=== PATIENT | female | born 1990 | race Caucasian/White ===

== ENCOUNTER 2021-01-20 07:33 | Emergency (ER) | payer OTHER ==
[2021-01-20 08:13] LABS: Urine Blood Trace-intact (Negative); Urine Glucose Negative (Negative); Urine Protein Negative (Negative)
[2021-01-20] MEDS ORDERED: AZITHROMYCIN 250 MG TAB ONE (08:20)
[2021-01-20] MEDS ORDERED: GENTAMICIN 0.3% OPTH DROP 5ML ONE (08:21)
[2021-01-20] MEDS ORDERED: IBUPROFEN 400 MG TAB ONE (08:21)
--- NOTE | 2021-01-20 08:29 | EDPHYS ---
Physician Documentation [facility] Name: Brooke Zamudio Age: 30 yrs Sex: Female : 1990 Arrival Date: 01/20/2021 Time: 07:36 Bed 23 Private MD: ED Physician Antony Sidhu HPI: 01/20 08:08 This 30 yrs old Female presents to ER via Ambulatory with complaints of Ear tw4 Pain, Fever, Toothache, Eye Swelling. 08:08 The patient presents with pain, tenderness. The complaints affect the left ear. Onset: tw4 The symptoms/episode began/occurred yesterday. Modifying factors: The symptoms are alleviated by the symptoms are aggravated by nothing. Associated signs and symptoms: Pertinent positives: eye pain. Severity of symptoms: At their worst the symptoms were moderate in the emergency department the symptoms are unchanged. The patient has not experienced similar symptoms in the past. Historical: - Allergies: 07:45 No Known Allergies; aa5 - Home Meds: 07:45 None [Active]; aa5 - PMHx: 07:45 None; aa5 - PSHx: 07:45 None; aa5 - Immunization history:: Adult Immunizations up to date, Client reports having NOT received the Covid vaccine. - Social history:: Smoking status: Patient denies any tobacco usage or history of. ROS: 08:08 Constitutional: Negative for fever, chills, and weight loss, Eyes: Negative for injury, tw4 pain, redness, and discharge, Cardiovascular: Negative for chest pain, palpitations, and edema, Respiratory: Negative for shortness of breath, cough, wheezing, and pleuritic chest pain, Abdomen/GI: Negative for abdominal pain, nausea, vomiting, diarrhea, and constipation, Back: Negative for injury and pain, MS/Extremity: Negative for injury and deformity, Skin: Negative for injury, rash, and discoloration, Neuro: Negative for headache, weakness, numbness, tingling, and seizure. 08:08 ENT: Positive for ear pain. Exam: 08:08 Constitutional: This is a well developed, well nourished patient who is awake, alert, tw4 and in no acute distress. Head/Face: Normocephalic, atraumatic. 08:08 Chest/axilla: Normal chest wall appearance and motion. Nontender with no deformity. No lesions are appreciated. Cardiovascular: Regular rate and rhythm with a normal S1 and S2. No gallops, murmurs, or rubs. Normal PMI, no JVD. No pulse deficits. Respiratory: Lungs have equal breath sounds bilaterally, clear to auscultation and percussion. No rales, rhonchi or wheezes noted. No increased work of breathing, no retractions or nasal flaring. Abdomen/GI: Soft, non-tender, with normal bowel sounds. No distension or tympany. No guarding or rebound. No evidence of tenderness throughout. Back: No spinal tenderness. No costovertebral tenderness. Full range of motion. 08:08 Eyes: Periorbital structures: swelling, Conjunctiva: injected, in the left eye. Vital Signs: 07:43 BP 126 / 74; Pulse 110; Resp 18 S; Temp 98.3(TE); Pulse Ox 99% on R/A; Weight 86.18 kg aa5 (R); Height 5 ft. 9 in. (175.26 cm) (R); 08:28 Pulse 84; Resp 16 S; Pulse Ox 100% on R/A; aa5 07:43 Body Mass Index 28.06 (86.18 kg, 175.26 cm) [facility] MDM: 07:[address] 08:26 Data reviewed: vital signs, nurses notes. Counseling: I had a detailed discussion with [facility] the patient and/or guardian regarding: the historical points, exam findings, and any diagnostic results supporting the discharge/admit diagnosis. Special discussion: I discussed with the patient/guardian in detail that at this point there is no indication for admission to the hospital. It is understood, however, that if the symptoms persist or worsen the patient needs to return immediately for re-evaluation. 01/20 08:13 Order name: Urine Dipstick-Ancillary [facility] 01/20 08:14 Order name: Urine --Ancillary (enter results) [facility] 01/20 08:15 Order name: Urine --Ancillary [facility] 01/20 08:13 Order name: Urine Test (obtain specimen); Complete Time: 08:13 [facility] 01/20 08:13 Order name: Urine Dipstick-Ancillary (obtain specimen); Complete Time: 08:13 [facility] Administered Medications: 08:18 Drug: Motrin (ibuprofen) 800 mg Route: PO; aa5 08:35 Follow up: Response: No adverse reaction aa5 08:18 Drug: AZITHromycin 500 mg Route: PO; aa5 08:35 Follow up: Response: No adverse reaction aa5 08:19 Drug: Gentamicin Drops 0.3 % 2 drops Route: Ophthalmic; Site: left eye; aa5 Disposition Summary: 01/20/21 08:28 Discharge Ordered Location: Home tw4 Problem: new tw4 Symptoms: have improved tw4 Condition: Stable tw4 Diagnosis - Other acute conjunctivitis tw4 - Acute reactive otitis externa, left ear tw4 Followup: tw4 - With: Private Physician - When: Upon discharge from the Emergency Department - Reason: Recheck today's complaints, Continuance of care, Re-evaluation by your physician Discharge Instructions: - Discharge Summary Sheet tw4 - Otitis Externa tw4 - Bacterial Conjunctivitis, Adult tw4 Forms: - Medication Reconciliation Form tw4 - Thank You Letter tw4 - Antibiotic Education tw4 - Prescription Opioid Use tw4 Prescriptions: - Gentamicin 0.3 % Ophthalmic Drops - instill 1 drop by OPHTHALMIC route every 4 hours for 7 days; 1 bottle; Refills: tw4 0, Product Selection Permitted - Zithromax Z-Farzad 250 mg Oral Tablet - take 1 tablet by ORAL route as directed for 5 days Day 1 - take two (2) tablets tw4 one time. Day 2, 3, 4 , 5 take one (1) tablet once daily.; 6 tablet; Refills: 0, Product Selection Permitted Signatures: Dispatcher [employer] Lydia Grover, AMANDO RN aa5 Antony Sidhu MD MD tw4
--- NOTE | 2021-01-20 08:29 | ER ---
Nurse's Notes [facility] Name: Brooke Zamudio Age: 30 yrs Sex: Female : 1990 Arrival Date: 01/20/2021 Time: 07:36 Bed 23 Private MD: Diagnosis: Other acute conjunctivitis;Acute reactive otitis externa, left ear Presentation: 01/20 07:43 Chief complaint: Patient states: "I've had a cold for a few days and low grade fever, aa5 my eyes started swelling and my left ear feels clogged and now my left upper jaw hurts like a toothache". Pt currently denies sore throat. Coronavirus screen: cough unrelated to allergies. Ebola Screen: Patient negative for fever greater than or equal to 101.5 degrees Fahrenheit, and additional compatible Ebola Virus Disease symptoms. Initial Sepsis Screen: Does the patient meet any 2 criteria? No. Patient's initial sepsis screen is negative. Does the patient have a suspected source of infection? No. Patient's initial sepsis screen is negative. Risk Assessment: Do you want to hurt yourself or someone else? Patient reports no desire to harm self or others. Onset of symptoms was January 20, 2021. 07:43 Method Of Arrival: Ambulatory aa5 07:43 Acuity: ZENA 4 aa5 Historical: - Allergies: 07:45 No Known Allergies; aa5 - Home Meds: 07:45 None [Active]; aa5 - PMHx: 07:45 None; aa5 - PSHx: 07:45 None; aa5 - Immunization history:: Adult Immunizations up to date, Client reports having NOT received the Covid vaccine. - Social history:: Smoking status: Patient denies any tobacco usage or history of. Screenin:55 Abuse screen: Denies threats or abuse. Nutritional screening: No deficits noted. aa5 Tuberculosis screening: No symptoms or risk factors identified. Fall Risk None identified. Assessment: 07:50 General: Appears uncomfortable, Behavior is calm, cooperative. Pain: Complains of pain aa5 in left ear and left upper jaw Pain currently is 6 out of 10 on a pain scale. Neuro: Level of Consciousness is awake, alert, obeys commands, Oriented to person, place, time, situation. Cardiovascular: Heart tones S1 S2 present Rhythm is regular. Respiratory: Reports cough Airway is patent Respiratory effort is even, unlabored, Respiratory pattern is regular, symmetrical, Breath sounds are clear bilaterally. GI: Abdomen is round non-distended. : No signs and/or symptoms were reported regarding the genitourinary system. EENT: Eyes are tearing on left eye Swelling noted to upper and lower left eyelids. . Reports nasal discharge that is watery pain in left ear. Derm: Skin is pink, warm \\T\\ dry. Musculoskeletal: Range of motion: intact in all extremities. 08:35 Reassessment: Patient is alert, oriented x 3, equal unlabored respirations, skin aa5 warm/dry/pink. Vital Signs: 07:43 BP 126 / 74; Pulse 110; Resp 18 S; Temp 98.3(TE); Pulse Ox 99% on R/A; Weight 86.18 kg aa5 (R); Height 5 ft. 9 in. (175.26 cm) (R); 08:28 Pulse 84; Resp 16 S; Pulse Ox 100% on R/A; aa5 07:43 Body Mass Index 28.06 (86.18 kg, 175.26 cm) aa5 ED Course: 07:36 Patient arrived in ED. as 07:43 Arm band placed on. aa5 07:43 Patient has correct armband on for positive identification. Placed in gown. Bed in low aa5 position. Call light in reach. Side rails up X 1. 07:45 Triage completed. aa5 07:46 Antony Sidhu MD is Attending Physician. tw4 07:50 Lydia Dejesus, RN is Primary Nurse. aa5 08:35 No provider procedures requiring assistance completed. Patient did not have IV access aa5 during this emergency room visit. Administered Medications: 08:18 Drug: Motrin (ibuprofen) 800 mg Route: PO; aa5 08:35 Follow up: Response: No adverse reaction aa5 08:18 Drug: AZITHromycin 500 mg Route: PO; aa5 08:35 Follow up: Response: No adverse reaction aa5 08:19 Drug: Gentamicin Drops 0.3 % 2 drops Route: Ophthalmic; Site: left eye; aa5 Outcome: 08:28 Discharge ordered by . tw4 08:35 Discharged to home ambulatory. aa5 08:35 Condition: stable 08:35 Discharge instructions given to patient, Instructed on discharge instructions, follow up and referral plans. medication usage, Demonstrated understanding of instructions, follow-up care, medications, Prescriptions given X 2. 08:36 Patient left the ED. aa5 Signatures: Kateryna Mandel Audri, RN RN aa5 Antony Sidhu MD MD tw4
[2021-01-20 09:01] VITALS: BP 126/74; TEMP 98.3
[2021-01-20 09:03] VITALS: O2SAT 100
== END 2021-01-20 08:36 | disposition home or self-care (01) ==
LOC: ER 07:33
DX: H60.552 Acute reactive otitis externa, left ear (principal); H10.30 Unspecified acute conjunctivitis, unspecified eye
CPT/HCPCS: 81003; 81025; 99283